=== PATIENT | female | born 1930 | race Caucasian/White ===

== ENCOUNTER → 2017-01-28 | Day surgery (SDC) | payer MEDICARE ==
[~2017-01-28] MED LIST: ADULT LOW DOSE81 MG PO; AMBIEN 5MG TAB5 MG PO; AMILORIDE HCL5 M1 PO; ASPIRIN 81MG TA81 MG PO; AZOR 5 MG-40 MG1 TAB PO; B12 INJ.,1000 MCG/M IM; BISOPROLOL5 MG PO; CARVEDILOL6.25 MG PO; CIPROFLOXACIN500 MG PO; DILTIAZEM CD 2240 MG PO; FOLIC ACID 1MG T1 MG PO; FUROSEMIDE 20MG20 MG FT; HYZAAR 50-12.51 EACH PO; INDERAL10 MG PO; ISONIAZID300 MG PO; LEVAQUIN250 MG PO; LISINOPRIL2.5 M1 PO; LOSARTAN POTASS1 TAB PO; LOSARTAN POTASS50 MG PO; MACROBID 100MG100 M1 PO; MAXZIDE 25 MG-31 TAB PO; METHOTREXA50 MG/2 ML IJ; MULTIVITAMIN1 TAB PO; NEURONTIN 100100 MG PO; NORCO 325 MG-51 TAB PO; NORVASC 10MG. T10 MG PO; NORVASC 5MG. TAB5 MG; OMEPRAZOLE20 MG PO; OTREXUP7.5 MG/0.4 SC; PREDNISONE 10MG10 MG PO; PREDNISONE 5MG.5 MG PO; PRESERVISION A1 EACH PO; PRINIVIL10 MG PO; REQUIP0.25 MG PO; REQUIP0.5 MG PO; RESTORIL7.5 MG PO; TRIAMTERENE-HCTZ 37. PO; TYLENOL WITH CO1 TA1 PO; VITAMIN D31000 IU PO; [UNRECOGNIZED DRUG - OTHER] PO
[2017-01-28 09:25] VITALS: BP 127/71
--- NOTE | 2017-01-28 09:40 | Operative Note ---
Procedure: Date of procedure: 01/28/17 Time of procedure: 933 Procedure performed: Implantable loop recorder Indication: Paroxysmal Atrial Fibrillation Elevated CHADS-VASc score Recurrent falls and high risk for anticoagulation use Technique: Technique: 1 percent lidocaine with epinephrine used to anesthetize the size. The LEFT anterior aspect of the chest along the LEFT sternal border. Using the preformed scalpel, an incision was made in the loop recorder was placed subcutaneously without difficulty. Following the deployment of the loop recorder interrogation of the device was performed to ensure appropriate voltage was being detected. Once this was verified. Steri-Strips were placed over the incision and the patient was prepped to discharge home. Patient tolerated procedure well with minimal discomfort. Impression: Successful deployment of loop recorder Serial number: [id number] Plan: Routine post op care. Follow up in office next week. at 0942
--- NOTE | 2017-01-28 09:40 | Operative Note ---
Procedure: Date of procedure: 01/28/17 Time of procedure: 933 Procedure performed: Implantable loop recorder Indication: Paroxysmal Atrial Fibrillation Elevated CHADS-VASc score Recurrent falls and high risk for anticoagulation use Technique: Technique: 1 percent lidocaine with epinephrine used to anesthetize the size. The LEFT anterior aspect of the chest along the LEFT sternal border. Using the preformed scalpel, an incision was made in the loop recorder was placed subcutaneously without difficulty. Following the deployment of the loop recorder interrogation of the device was performed to ensure appropriate voltage was being detected. Once this was verified. Steri-Strips were placed over the incision and the patient was prepped to discharge home. Patient tolerated procedure well with minimal discomfort. Impression: Successful deployment of loop recorder Serial number: [id number] Plan: Routine post op care. Follow up in office next week. at 0942
== END ==
LOC: CATHLAB 07:52
PROVIDERS: Internal Medicine
PROC: 0JH632Z Insertion of Monitoring Device into Chest Subcutaneous Tissue and Fascia, Percutaneous Approach (ICD-10-PCS; principal; 2017-01-28 08:30)
DX: I48.0 Paroxysmal atrial fibrillation (principal); R29.6 Repeated falls; Z91.81 History of falling
CPT/HCPCS: C1764

== ENCOUNTER 2017-07-14 15:21 | Emergency (ER) | payer MEDICARE ==
[~2017-07-14] VITALS: Ht 162.6 cm; Wt 72.6 kg
[~2017-07-14 15:21] MED LIST changes: +CIPRO 500MG TA500 MG; +REQUIP2 M1
[2017-07-14 15:31] LABS: HEMOGLOBIN 12.4 g/dL (12.2-16.2); LYMPH # 1.6 K/mm3 (0.7-4.5); LYMPH % 42.3 % (10-50.0)
[2017-07-14] MEDS ORDERED: LOSARTAN POTASS50 MG PO (15:31)
[2017-07-14] MEDS ORDERED: BYSTOLIC5 MG PO (15:32)
[2017-07-14] MEDS ORDERED: ROPINIROLE HYDRO1 MG PO (15:34)
[2017-07-14] MEDS ORDERED: PLAQUENIL200 MG PO (15:35)
[2017-07-14] MEDS ORDERED: ALENDRONATE SOD70 MG PO (15:36)
[2017-07-14] MEDS ORDERED: LIPITOR40 MG PO (15:37)
[2017-07-14] MEDS ORDERED: TYLENOL WITH CO1 TA1 PO (15:37)
[2017-07-14] MEDS ORDERED: ASPIRIN 81MG TA81 MG PO (15:38)
[2017-07-14] MEDS ORDERED: FUROSEMIDE 20MG20 MG PO (15:38)
[2017-07-14] MEDS ORDERED: VITAMIN D1000 IU PO (15:39)
--- NOTE | 2017-07-14 15:44 | RADIOLOGY REPORT PS360 ---
CT HEAD W/O CONTRAST COMPARISON: None HISTORY: Headache, hypertension, stroke symptoms sided weakness, facial droop TECHNIQUE: Multiaxial scans obtained from base skull to the vertex and were performed without IV contrast. FINDINGS: The base of skull appears normal, the mastoids are clear. The basilar cisterns are mildly prominent. There is diffuse ventriculomegaly. There is a large acute hemorrhage right frontal lobe measuring 3.1 x 3.0 cm in size abutting the interhemispheric fissure and causing mild mass effect upon the frontal horn of the right lateral ventricle. There is minimal effacement of the cortical sulci surrounding the bleed into the vertex of the brain. There is no subarachnoid extension. The sylvian fissures and cortical sulci are somewhat prominent. IMPRESSION: Acute intraparenchymal hemorrhage likely secondary to hypertension, cerebral amyloid angiopathy is another consideration. Additional findings and mild to moderate age-appropriate cortical atrophy.
--- NOTE | 2017-07-14 15:49 | Emergency Room Report ---
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 Clinical Suspician of Infection? Mental Status: Sepsis Risk: Have you (or family members/close friends) recently traveled outside the [place]? If Yes, where/when: Have you had exposure to infectious disease within the past month? TB? Other? Specify: 87 years old white female with history of hypertension and hypoglycemia. She was seen by her primary care physician yesterday and started on bystolic. She is back to this she developed LEFT sided weakness was unable to speak and brought to the ED. I obtained a stat CT scan which showed RIGHT intraventricular hemorrhage. I contacted stroke who accepted her to the ED. Source patient, RN notes reviewed, family Exam Limitations clinical condition ALLERGIES Coded Allergies: Penicillins (12/06/15) Home Medications Reported Medications Losartan Potassium (Losartan 50MG) 50 MG PO DAILY NEBIVOLOL HCL (Bystolic) 10 MG PO DAILY ROPINIROLE HCL (Ropinirole 1MG) 1 MG PO BID Hydroxychloroquine Sulfate (Plaquenil) 200 MG PO DAILY Alendronate Sodium 70 MG PO WEEKLY Atorvastatin Calcium (Atorvastatin) 40 MG PO DAILY ACETAMINOPHEN WITH CODEINE (Tylenol With Codeine #3 Tablet) 1 TAB PO BIDP PRN PAIN Furosemide (Furosemide) 20 MG PO DAILYP PRN FLUID ASPIRIN (Aspirin) 81 MG PO DAILY CHOLECALCIFEROL (VITAMIN D3) (Vitamin D3) 1,000 IUNITS PO DAILY History Medical History General CAD? No Angina: No [place]: Yes Hypertension? Yes Hyperlipidemia? Yes CHF? No DVT? Yes PE? No COPD? No Asthma? No Anemia? No GERD? No Gastric ulcers? No GI Bleed? No Hernia? No Thyroid Problems? No Hypothyroidism? No CVA? No Seizures? No Diabetes? No Renal Insuffiency? No End Stage Renal Disease? No UTI? Yes Stones? Yes BPH? No GB Disease: No Nephritic Syndrome? No Asplenia? No Hepatitis? No Sickle Cell Disease? No Arthritis? Yes Migraines? No Cataracts? No Glaucoma? No MRSA? No HIV? No TB? No Anxiety? No Depression? No Cancer? No More? Yes Additional hx: RHEUMATIOD ARTHRITIS Immunization Hx DT/Tetanus Unknown Flu Refused Pneumonia Received In Past Surgical Hx Previous Surgery?Y Appendix Breast bx Tonsils Hysterect BACK SURGERY LT KNEE RT KNEE Family History Family Hx Diabetes No CAD Yes Hypertension Yes Hyperlipidemia Yes Cancer Yes TB No Social History Alcohol Alcohol: No Review of Systems All Other Systems Reviewed and Negative Constitutional no symptoms reported Eyes no symptoms reported ENT no symptoms reported. Respiratory no symptoms reported Cardiovascular no symptoms reported Gastrointestinal no symptoms reported Genitourinary no symptoms reported. Musculoskeletal see HPI (weakness) Skin no symptoms reported Psychiatric/Neurological weakness (LEFT sided) Physical Exam Vital Signs Vital Signs Date Time Temp Pulse Resp B/P Pulse O2 O2 Flow FiO2 Ox Delivery Rate 07/14 1625 98.4 66 18 192/84 96 07/14 1613 66 18 192/84 96 07/14 1611 65 20 209/97 94 07/14 1608 60 20 207/101 94 07/14 1605 61 18 204/94 94 07/14 1600 62 18 188/99 92 07/14 1550 65 20 218/104 94 07/14 1547 72 16 199/140 93 10 1528 98.4 65 16 206/101 97 - WBC >12,000 or <4,000 or 10% bands? 2 or more SIRS Criteria Met? B/P:206/101 MAP:136 Creatinine >2.0? UA output<0.5ml/kg/hr for 2 hrs? Platelet count >100,000? Lactate >2.0mmol/1? INR >1.2 or PTT > than 60 sec? Evidence of Organ Dysfunction? Provider documented clinical suspician of infection? N Sepsis Criteria Count: 0 Sepsis Risk: Low Sepsis Risk General Appearance normal appearance, WD/WN Eye Exam - bilateral eye normal exam, bilateral eye PERRL, bilateral eye EOMI Ear, Nose, Throat hearing grossly normal, normal ENT inspection Neck normal inspection, non-tender, supple, full range of motion Respiratory Status Yes: trachea midline, chest symmetrical, non tender chest. No: respiratory distress. Lung Sounds bilateral: normal breath sounds, lungs clear. Cardiovascular normal exam, regular rate/rhythm, no peripheral edema, no gallop, no JVD, no murmur, no rub, normal peripheral pulses Peripheral Pulses Pulses normal Yes Gastrointestinal normal bowel sounds, normal exam, non tender, soft, no organomegaly Back normal inspection, no CVA tenderness, no vertebral tenderness Extremities non-tender, normal range of motion, normal inspection Neurologic alert, normal exam, incomplete closure of the LEFT eye, flattening of the LEFT nasolabial fold There was weakness of the LEFT upper and lower extremities. LEFT shashi-neglect. Glascow Coma Scale Glascow Coma Scale Response Value EYE response: 4 Spontaneously 4 MOTOR response: 6 OBEYS 6 VERBAL response: 5 Oriented & Converses 5 Total 15 Skin intact, normal color, warm/dry Medical Decision Making LABS/Meds/Orders Pt receiving controlled substance in ED? No Results/Orders Laboratory Tests 07/14/17 1545: Urine Color YELLOW, Urine Appearance CLEAR, Urine pH 6.0, Ur Specific [place] >= 1.030, Urine Protein NEGATIVE, Urine Ketones NEGATIVE, Urine Blood NEGATIVE, Urine Nitrate NEGATIVE, Urine Bilirubin NEGATIVE, Urine Urobilinogen 0.2, Ur Leukocyte Esterase NEGATIVE, Urine RBC NONE, Urine WBC 5-10, Ur Squamous Epith Cells OCC, Calcium Oxalate Crystal OCC, Urine Bacteria 3+, Hyaline Casts 3-5, Urine Mucus 3+, Urine Glucose NEGATIVE 07/14/17 1520: Sodium 143, Potassium 3.9, Chloride 106, Carbon Dioxide 29, BUN 20 H, Creatinine 1.0, Estimated Creat Clear 47 L, Estimated GFR (MDRD) 53 L, Glucose 93, Calcium 8.7, Total Bilirubin 0.6, AST 16, ALT 21, Alkaline Phosphatase 139 H, Creatine Kinase 258 H, CK-MB (CK-2) Rel Index 0.7, CK and CKMB Interp 1.9, Troponin I < 0.02, Total Protein 6.3 L, Albumin 3.7, Globulin 2.6, Albumin/ Globulin Ratio 1.4, PT 11.8, INR 1.09, APTT 24.3, WBC 3.7 L, RBC 3.97 L, Hgb 12.4, Hct 39.3, MCV 99.2 H, RDW 13.6, Plt Count 210, MPV 7.9, Gran % 46.3, Gran # 1.7 L, Lymphocytes % 42.3, Monocytes % 8.1, Eosinophils % 2.3, Basophils % 0.9, Lymphocytes # 1.6, Monocytes # 0.3, Eosinophils # 0.1, Basophils # 0.0, PUBS MCHC 31.6 L, MCH 31.3 H Current Medication Orders Sig/Akila Start time Last Medication Dose Route Stop Time Status Admin Nicardipine HCl 25 MG .Q5H 07/14 1600 DCD 07/14 Sodium Chloride 240 ML IV 1600 Labetalol HCl 10 MG ONCE ONE 07/14 1545 DC 07/14 IV 07/14 1546 1536 Ondansetron HCl 4 MG ONCE ONE 07/14 1545 DC 07/14 IV 07/14 1546 1540 Labetalol HCl 0 .STK-MED ONE 07/14 1536 DC IV Ondansetron HCl 0 .STK-MED ONE 07/14 1536 DC .ROUTE Orders Procedure Date/time Status DIET-NOTHING BY MOUTH 07/14 D Active URINARY CATHETER INSERT 07/14 155 Active URINALYSIS/COMPLETE 07/14 155 Complete CULTURE, URINE 07/14 154 Active ELECTROCARDIOGRAM REQUEST 07/[address] HEAD REQ 07/14 152 Active PARTIAL THROMBOPLASTIN TIME 07/14 152 Complete PROTHROMBIN TIME 07/14 152 Complete CBC WITH AUTO DIFF 07/14 152 Complete CARDIAC ENZYMES 07/14 152 Complete CHEM 12 PROFILE 07/14 152 Complete 12 LEAD EKG-BESSON (INITIAL) 07/14 UNK Active CM/EKG CM/EKG EKG normal sinus rhythm 65 minutes no acute findings XRAY/CT/US XRAY/CT/US CT head CT interpretation by reviewed by me, discussed w/radiologist Time results known: 1550 CT Results IChge Departure Departure Time of Disposition 1546 Disposition DC/XFER from ER to [facility] Clinical Impression Primary Impression: Hemorrhagic cerebrovascular accident (CVA) Secondary Impressions: Hypertension Condition STABLE Additional Instructions I discussed all exam and Ct findings with the patient and her brother, I explained the need to go to tertiary facility for neurosurery consultation and they agreed. I called Dr Eid who recommened a nicardipine drip and transfer to ED for nuerosurgical and Neurology teams evalution. The patietn remained neurologically stable. Intially given labetalol and stated Nicardipine per [facility] recommeddations priot to transfere. SHe was transered in a neurologically and hemodynamically stable condition. Dr. Kilpatrick Discharge Counseling Counseled pt/family regarding diagnosis, follow up needs ED Critical Care Critical Care Yes Time spent < 30 min Vital system(s) involved: Central Nervous System I was present at bedside for Coordinating pt's care, Interpreting EKGs/Strips , During my initial exam, Reviewing lab results, Discussing pt condition, For re -examinations If Critical Care minutes are documented, the time involved in the performance of seperately reportable procedures was not counted toward critical care time documented. I directly delivered medical care to this critically ill and/or injured patient. Timely evaluation and treatment was necessary to address the significant organ system(s) dysfunction present in this patient. at 1706
[2017-07-14 15:54] LABS: BUN 20 mg/dL (7-18)
[2017-07-14 15:55] LABS: GFR (ESTIMATED) 53 ML/MIN (59-)
[2017-07-14 15:58] LABS: URINE BILIRUBIN - DIPSTICK NEGATIVE (NEG); URINE BLOOD NEGATIVE (NEG)
[2017-07-14 16:13] LABS: URINE SQUAMOUS CELLS OCC #/hpf (0-5)
[2017-07-14 16:25] VITALS: BP 192/84
--- OUTSIDE RECORDS SUMMARY | 2017-07-21 20:10 | External Medical Summary Rpt ---
Author Author [facility] Organization [facility] Address Unknown Phone Unavailable Care Team Providers Care Delicatessen Manager Name Role Phone PHY, UNKNOWN PCP Unavailable Encounter [facility] [id number] Date(s): 06/24/16 - 07/01/16 [facility] [place] [id number]- Discharge Disposition: OP Self Care or Home Attending Physician: JOHN BEASLEY MD-URO Admitting Physician: JOHN BEASLEY MD-URO Referring Physician: JOHN BEASLEY MD-URO Reason for Visit CALCULUS OF KIDNEY Vital Signs Most recent 1 2 3 to oldest [Reference Range]: Temperature Temporal artery Temporal artery Temporal artery Source scanning (07/01/16 scanning (07/01/16 scanning (07/01/16 11:00 AM) 10:20 AM) 9:55 AM) Temperature Fahrenheit Fahrenheit Fahrenheit Mode (07/01/16 11:00 (07/01/16 10:20 (07/01/16 9:55 AM) AM) AM) Temperature, 97 Deg F (07/01/16 97.7 Deg F 97.6 Deg F Fahrenheit 11:00 AM) (07/01/16 10:20 (07/01/16 9:55 AM) [96.8-99.7 AM) Deg F] Clinical 36.1 Deg C 36.5 Deg C 36.4 Deg C Temperature, (07/01/16 11:00 (07/01/16 10:20 (07/01/16 9:55 AM) C AM) AM) Heart Rate 64 bpm (07/01/16 60 bpm (07/01/16 65 bpm (07/01/16 Monitored 11:30 AM) 11:15 AM) 11:00 AM) [60-100 bpm] Respiratory 16 Breaths/Min 16 Breaths/Min 16 Breaths/Min Rate [14-20 (07/01/16 11:00 (07/01/16 10:30 (07/01/16 10:20 Breaths/Min] AM) AM) AM) Blood Arm, left upper Pressure (07/01/16 6:00 AM) Location Blood Non-Invasive BP Pressure Device (07/01/16 Source 6:00 AM) Blood 153/77 mmHg 159/78 mmHg 156/85 mmHg Pressure *HI*(07/01/16 *HI*(07/01/16 *HI*(07/01/16 [90-140/60-9 11:30 AM) 11:15 AM) 11:00 AM) 0 mmHg] Mean 115 (07/01/16 95 (07/01/16 10:15 103 (07/01/16 Arterial 10:20 AM) AM) 10:10 AM) Pressure (MAP)-BMDI Oxygen 95 % (07/01/16 95 % (07/01/16 97 % (07/01/16 Saturation 11:30 AM) 11:15 AM) 11:00 AM) [94-100 %] Oxygen Room air (07/01/16 Room air (07/01/16 Room air (07/01/16 Therapy Mode 11:30 AM) 11:15 AM) 11:00 AM) Oxygen Flow 5 Liter/Min Rate (07/01/16 9:55 AM) Problem List Condition Effective Status Health Informant Dates Status Arthritis Active (knees)(Conf irmed) Back Active pain(Confirm ed) dizzy spell Active prior to "episode" in 06/2015 with UTI(Confirme d) GERD - Active Gastro-esoph ageal reflux disease (occasional) (Confirmed) heart Active murmer(Confi rmed) High blood Active pressure(Con firmed) Immunosuppre Active ssion (RA)(Confirm ed) Incontinence Active (occasional) (Confirmed) Myocardial Active infarction (? possible mild)(Confir med) recent fall 06/09/16 Active (hurt hip and into thigh-left)( Confirmed) Renal Active calculus(Con firmed) Restless Active legs syndrome (occasional) (Confirmed) rheumatoid Active arthritis(Co nfirmed) small Active cataracts(Co nfirmed) Urinary Active tract infection(Co nfirmed) UTI-septic 06/2015 Active ("went to heart")(Conf irmed) Allergies, Adverse Reactions, Alerts Substance Reaction Severity Status penicillin Rash Active Shortness of breath Medications acetaminophen-HYDROcodone ([place] 5 mg-325 mg oral tablet)1 Tab, Oral, Every 4 Hours, As Needed, for pain, Refills: 0Ordering provider: Emre Wade Physician carvedilol (Coreg CR 20 mg oral capsule, extended release)1 Cap, Oral, Every Morning, Refills: 0 cholecalciferol (Vitamin D3 1000 intl units oral capsule)1 Cap, Oral, Every Day, Refills: 0 ciprofloxacin (Cipro 500 mg oral tablet) 1 Tab, Oral, every 12 hours, Refills: 0 Ordering provider: Emre Wade Physician estradiol topical (Estrace Vaginal 0.1 mg/g vaginal cream)1 Application, Vaginal, 3 times/week, Refills: 0 gabapentin (gabapentin 100 mg oral capsule)1 Cap, Oral, At Bedtime, As Needed, Pain, Refills: 0 losartan (losartan 50 mg oral tablet) 1 Tab, Oral, Every Day, Refills: 0 multivitamin with minerals (PreserVision AREDS 2)1 Cap, Oral, Two Times A Day, Refills: 0 phenazopyridine (phenazopyridine 100 mg oral tablet)1 Tab, Oral, Three Times A Day, 7 Day(s), Refills: 0Ordering provider: Emre Wade Physician rOPINIRole (rOPINIRole 0.5 mg oral tablet)1 Tab, Oral, At Bedtime, As Needed, restless leg, Refills: 0 Results No data available for this section Immunizations No data available for this section Procedures Procedure Date Related Body Site Diagnosis lithotripsy 1986 appendectomy cyst removed left breast hysterectomy left TKR lumbar discectomy tonsillectomy Social History Social History Response Type Smoking Status Never smoker Assessment and Plan No data available for this section Hospital Discharge Instructions Patient EducationCystoscopy, Care After General Anesthesia, Adult, Care After
--- OUTSIDE RECORDS SUMMARY | 2017-07-21 20:10 | External Medical Summary Rpt ---
Author Author [facility] Organization [facility] Address Unknown Phone Unavailable Care Team Providers Care Furniture Dipper Name Role Phone PHY, UNKNOWN PCP Unavailable Encounter [facility] [id number] Date(s): 06/24/16 - 07/01/16 [facility] [place] [address]- [phone] Discharge Disposition: OP Self Care or Home [...] Rash Active Shortness of breath Medications acetaminophen-HYDROcodone ([place] 5 mg-325 mg oral tablet)1 Tab, Oral, Every 4 Hours, As Needed, for pain, Refills: 0Ordering provider: Emre Waed Physician carvedilol (Coreg CR 20 mg oral [...]
--- OUTSIDE RECORDS SUMMARY | 2017-07-21 20:11 | External Medical Summary Rpt ---
Author Author BERHANE [facility] Organization [facility] Address Unknown Phone Unavailable Care Team Providers Care Bead Forming Machine Set Up Operator Name Role Phone AURELIAANITHA, (REF) PCP [phone] Encounter BERHANE AMAYA [id number] Date(s): 02/16/17 - 02/22/17 [facility] [address] [place] [address]- Discharge Diagnosis: Primary osteoarthritis of right knee Discharge Disposition: IP Self Care / Home Attending Physician: YI MG MD-ORT Admitting Physician: JEANNETTE PETER MD-INT Referring Physician: YI MG MD-ORT Reason for Visit UNILATERAL PRIMARY OSTEOARTHRITIS, RIGHT KNEE Vital Signs Most recent 1 2 3 to oldest [Reference Range]: Temperature Oral Oral (02/21/17 Temporal artery Source (02/22/17 1:23 PM) 11:18 AM) scanning (02/21/17 10:20 AM) Temperature Fahrenheit Fahrenheit Fahrenheit Mode (02/22/17 1:23 PM) (02/21/17 11:18 (02/21/17 10:20 AM) AM) Temperature, 97.2 Deg F 97.2 Deg F 96.5 Deg F Fahrenheit (02/22/17 1:23 PM) (02/22/17 9:00 AM) *LOW* [96.8-99.7 (02/22/17 2:57 AM) Deg F] Clinical 36.2 Deg C 35.8 Deg C 36.3 Deg C Temperature, (02/22/17 1:23 PM) (02/22/17 2:57 AM) (02/21/17 11:18 C AM) Pulse Method Pulse Oximetry Non-Invasive BP Non-Invasive BP (02/21/17 10:20 Device (02/21/17 Device (02/18/17 AM) 7:50 AM) 2:59 PM) Pulse Source Brachial, Left (02/21/17 7:50 AM) Pulse Rhythm Regular (02/21/17 Regular 10:20 AM) (02/18/17 2:59 PM) Peripheral 66 bpm 64 bpm Pulse Rate (02/21/17 7:50 AM) (02/18/17 2:59 PM) [60-100 bpm] Heart Rate 67 bpm 66 bpm 66 bpm Monitored (02/22/17 1:23 PM) (02/22/17 8:48 AM) (02/22/17 8:00 AM) [60-100 bpm] Respiratory 14 Breaths/Min 16 Breaths/Min 18 Breaths/Min Rate [14-20 (02/22/17 1:23 PM) (02/22/17 8:00 AM) (02/21/17 11:00 Breaths/Min] PM) Blood Arm, right upper Arm, left upper Arm, left upper Pressure (02/21/17 10:20 (02/21/17 7:50 AM) (02/21/17 7:25 AM) Location AM) Blood Non-Invasive BP Non-Invasive BP Non-Invasive BP Pressure Device (02/21/17 Device (02/21/17 Device (02/21/17 Source 10:20 AM) 7:50 AM) 7:25 AM) Blood Sitting (02/21/17 Sitting Sitting Pressure 10:20 AM) (02/21/17 7:50 AM) (02/21/17 7:25 AM) Position Blood 107/46 mmHg 135/62 mmHg 135/62 mmHg Pressure (02/22/17 1:23 PM) (02/22/17 8:48 AM) (02/22/17 8:00 AM) [90-140/60-9 0 mmHg] Mean 79 75 72 (02/21/17 11:00 Arterial (02/22/17 8:00 AM) (02/22/17 2:57 AM) PM) Pressure (MAP)-BMDI Oxygen 93 % 94 % 89 % Saturation *LOW* (02/22/17 8:00 AM) *LOW* [94-100 %] (02/22/17 1:23 PM) (02/22/17 2:57 AM) Oxygen Room air Room air Room air (02/21/17 Therapy Mode (02/22/17 1:23 PM) (02/22/17 9:00 AM) 11:00 PM) Oxygen Flow 2 Liter/Min 2 Liter/Min 2 Liter/Min Rate (02/21/17 8:46 PM) (02/21/17 11:18 (02/21/17 11:00 AM) AM) Height Stated Stated Stated Source (02/21/17 7:50 AM) (02/21/17 7:25 AM) (02/18/17 2:59 PM) Height Entry [place] Format (02/21/17 7:50 AM) (02/21/17 7:25 AM) (02/18/17 2:59 PM) Height/Lengt 64 Inch 64 Inch 64 Inch h MALAWIAN (02/21/17 7:50 AM) (02/21/17 7:25 AM) (02/18/17 2:59 PM) CLINICALHEIG 162.56 cm 162.56 cm 162.56 cm HT (02/21/17 7:50 AM) (02/21/17 7:25 AM) (02/18/17 2:59 PM) Weight Standing scale Standing scale Standing scale Source (02/21/17 7:50 AM) (02/21/17 7:25 AM) (02/18/17 2:59 PM) Weight Entry [place] Format (02/21/17 7:50 AM) (02/21/17 7:25 AM) (02/18/17 2:59 PM) Weight 152 lb 152 lb 150 lb Eston[place] lb (02/21/17 7:50 AM) (02/21/17 7:25 AM) (02/18/17 2:59 PM) CLINICALWEIG 69.09 kg 69.09 kg 68.18 kg HT (02/21/17 7:50 AM) (02/21/17 7:25 AM) (02/18/17 2:59 PM) Body Surface 1.74 m2 1.74 m2 1.73 m2 Area (BSA) (02/21/17 7:50 AM) (02/21/17 7:25 AM) (02/18/17 2:59 PM) Body Mass 26.1 kg/m2 26.1 kg/m2 25.8 kg/m2 Index *HI* *HI* *HI* [19.0-24.0 (02/21/17 7:50 AM) (02/21/17 7:25 AM) (02/18/17 2:59 PM) kg/m2] [place] Body 54 kg 54 kg 54 kg Weight (02/21/17 7:50 AM) (02/21/17 7:25 AM) (02/18/17 2:59 PM) Problem List Condition Effective Status Health Informant Dates Status Arthritis Active (knees)(Conf irmed) Back Active pain(Confirm ed) dizzy spell Active prior to "episode" in 06/2015 with UTI(Confirme d) Hx; recent Active fall (lower back pain)(Confir med) GERD - Active Gastro-esoph ageal reflux disease (occasional) (Confirmed) heart Active murmer(Confi rmed) High blood Active pressure(Con firmed) Immunosuppre Active ssion (RA)(Confirm ed) Incontinence Active (occasional) (Confirmed) Cataract of Active right eye(Confirme d) Myocardial Active infarction (? possible mild)(Confir med) Renal Active calculus(Con firmed) Restless Active legs syndrome (occasional) (Confirmed) rheumatoid Active arthritis(Co nfirmed) Urinary Active tract infection(Co nfirmed) UTI-septic 06/2015 Active ("went to heart")(Conf irmed) Allergies, Adverse Reactions, Alerts Substance Reaction Severity Status penicillin Rash Active Shortness of breath Medications amLODIPine (amLODIPine 5 mg oral tablet) 1 Tab, Oral, Every Day, Refills: 0 aspirin (aspirin 81 mg oral tablet) 1 Tab, Oral, Every Day, Refills: 0 atorvastatin (atorvastatin 40 mg oral tablet) 1 Tab, Oral, Every Day, Refills: 0 carvedilol (Coreg 25 mg oral tablet) 1 Tab, Oral, Two Times A Day, Refills: 0 cholecalciferol (Vitamin D3 1000 intl units oral capsule)1 Cap, Oral, Every Day, Refills: 0 ferrous gluconate (ferrous gluconate 325 mg (36 mg elemental iron) oral tablet)1 Tab, Oral, Every Day, Refills: 0 furosemide (Lasix 20 mg oral tablet) 1 Tab, Oral, Every Day, Refills: 0 gabapentin (gabapentin 300 mg oral capsule) 1 Cap, Oral, At Bedtime, Refills: 0 losartan (losartan 50 mg oral tablet) 1 Tab, Oral, Every Day, Refills: 0 multivitamin with minerals (PreserVision AREDS 2)1 Cap, Oral, Two Times A Day, Refills: 0 Non Formulary (Non Formulary Medication) 1 Cap, Oral, Every Day, Tumeric, Refills: 0 rOPINIRole (Requip 0.25 mg oral tablet)1 Tab, Oral, Two Times A Day, As Needed, restless, Refills: 0 Results GENERAL CHEMISTRY Most recent 1 2 to oldest [Reference Range]: Sodium Level 140 mmol/L 142 mmol/L [136-145 (02/22/17 4:08 AM) (02/21/17 1:39 PM) mmol/L] Potassium 3.9 mmol/L 4.2 mmol/L Level (02/22/17 4:08 AM) (02/21/17 1:39 PM) [3.5-5.1 mmol/L] Chloride 106 mmol/L 106 mmol/L Level (02/22/17 4:08 AM) (02/21/17 1:39 PM) [98-107 mmol/L] Carbon 26 mmol/L 27 mmol/L Dioxide (02/22/17 4:08 AM) (02/21/17 1:39 PM) Level [21-32 mmol/L] Anion Gap 12 13 [9-20] (02/22/17 4:08 AM) (02/21/17 1:39 PM) Glucose 146 mg/dL 122 mg/dL Level *HI* *HI* [74-106 (02/22/17 4:08 AM) (02/21/17 1:39 PM) mg/dL] Blood Urea 24 mg/dL 21 mg/dL Nitrogen *HI* *HI* [7-18 mg/dL] (02/22/17 4:08 AM) (02/21/17 1:39 PM) Creatinine 0.98 mg/dL 0.84 mg/dL Level (02/22/17 4:08 AM) (02/21/17 1:39 PM) [0.55-1.02 mg/dL] eGFR 66 mL/min/1.73m2 78 mL/min/1.73m2 [>=60 (02/22/17 4:08 AM) (02/21/17 1:39 PM) mL/min/1.73m 2] eGFR 54 mL/min/1.73m2 65 mL/min/1.73m2 NonAfrican *LOW* (02/21/17 1:39 PM) [>=60 (02/22/17 4:08 AM) mL/min/1.73m 2] Bun/Creatini 24.5 25.0 ne *HI* *HI* [8.0-20.0] (02/22/17 4:08 AM) (02/21/17 1:39 PM) Calcium 8.4 mg/dL 8.8 mg/dL Level *LOW* (02/21/17 1:39 PM) [8.5-10.1 (02/22/17 4:08 AM) mg/dL] CARDIAC SPECIFIC MARKERS Most recent 1 2 to oldest [Reference Range]: ProBNP 377 pg/mL [0-450 (02/22/17 4:08 AM) pg/mL] HEMATOLOGY Most recent 1 2 to oldest [Reference Range]: Hgb 10.5 Gram/dL 11.2 Gram/dL [11.2-15.7 *LOW* (02/21/17 10:29 AM) Gram/dL] (02/22/17 4:08 AM) Hct 30.9 % 33.3 % [34.1-44.9 *LOW* *LOW* %] (02/22/17 4:08 AM) (02/21/17 10:29 AM) BLOOD BANK Most recent 1 2 to oldest [Reference Range]: ABO/Rh B POS *Unknown* (02/21/17 8:07 AM) ABO/Rh B POS Repeat *Unknown* (02/21/17 8:11 AM) Antibody Negative ABSC Screen (02/21/17 8:07 AM) (Tube) Immunizations No data available for this section Procedures Procedure Date Related Body Site Diagnosis cataract ext / IOL left eye colonosccopy heart cath - no interventions right TKA x 2 Social History Social History Response Type Smoking Status Never smoker Assessment and Plan Extracted from: Title: Ortho Author: MARIA A BOLTON, Date: 02/22/17 PA-C Assessment/Plan POD #1 s/p Right TKA--Patient's pain is well controlled. Pull drain today. Patient is participating in post operative therapy diligently. Knee flexion/extension progressing well. [address] patients affected heel, padded, onto bucket, 1 foot above hip to encourage knee extension for 30 minutes. Prone hangs BID with 5# weight. Keep dressing clean, dry and intact. Plan for d/cREHAB today, please see ortho addendum for instructions. Extracted from: Title: Ortho Addendum Author: MARIA A BOLTON, Date: 02/21/17 PA-Pepito Discharge Plan Ortho Discharge Summary Addendum Discharge: Rehab/Factiliy Procedure: Right TKA Complications: None DVT Prophylaxis: Aspirin 81 mg tabs, 1 BID for 45 days. Script written, on chart WBStatus:WBAT Therapy goals: Hospital ROM Continue Earnest at home all times when not performing PT/HEP TID Prone Hangs, patient shown how to perform CPM machine 0-110 Goal- Knee flexion 110 degrees GARETH F/U in clinic 2-3 weeks Discharge Instructions: 1)Elevate the knee and the entire lower extremity for as much as possible for 6 weeks and use ice liberally for 30 minutes 3-4 times a day. 2)Patient may shower on the 3rd day after surgery, but must keep the wound or dressing completely dry until wilton are removed. The patient should not take any soaking baths until 1 month after surgery. 3) Patient may bear as much weight as tolerated on the affected extremity. TUBS (passive exertion) exercises for 30 minutes TID are effective initially after surgery, but after the 1st week, the patient should progress to prone hangs to help with knee straightening postoperatively. 4) Patient will be on blood thinner for 4 to 6 weeks after surgery. Blood thinner is ECASA 81mg tabs po BID x 45 days. 5) You may remove the ALYCIA day after surgery and leave the incision uncovered if it is completely dry. PLEASE DO NOT REMOVE MESH PRINIO DRESSING. 6) An ALYCIA wrap can be used to cover the wound to maintain compression and decrease swelling. 7) Call for wound drainage that is present beyond 7 days after surgery. 9) Motion is more important than strength or walking distance during the first 6 weeks after surgery. 10) Gabapentin 300 mg tabs, Oxycodone 10mg tabs, Tramadol 50mg q6hand Tylenol 1000mg TID will be used for postoperative pain control and should be weaned as the patient can tolerate . 7) Call for wound drainage that is present beyond 7 days after surgery. 9) Motion is more important than strength or walking distance during the first 6 weeks after surgery. 10) Gabapentin 300 mg tabs, Oxycodone 10mg tabs, Tramadol 50mg q6hand Tylenol 1000mg TID will be used for postoperative pain control and should be weaned as the patient can tolerate . Adde Patient reports hallucinations with Tramadol, this medication ndum was removed from d/c medications list. by MARIA A BARNES PA-C on 22 Feb 2017 07:3 7:42 EDT Hospital Discharge Instructions Patient EducationCompression Stockings Hand Washing Knee Immobilizer Dominik Mg TKA Discharge Instructions (Custom) Total Knee Replacement Total Knee Replacement, Care After Walker Use
--- OUTSIDE RECORDS SUMMARY | 2017-07-21 20:11 | External Medical Summary Rpt ---
Author Author BERHANE [facility] Organization [facility] Address Unknown Phone Unavailable Care Team Providers Care Hand Flesher Name Role Phone AURELIAANITHA, (REF) PCP [phone] Encounter BERHANE AMAYA [id number] Date(s): 02/16/17 - 02/22/17 [facility] [address] [place] [address]- [phone] Discharge Diagnosis: Primary osteoarthritis of right knee [...] 7:25 AM) (02/18/17 2:59 PM) Height Entry [place] Format (02/21/17 7:50 AM) (02/21/17 7:25 AM) (02/18/17 2:59 PM) Height/Lengt 64 Inch 64 Inch 64 Inch h [place] (02/21/17 7:50 AM) (02/21/17 7:25 AM) (02/18/17 2:59 PM) CLINICALHEIG 162.56 cm 162.56 cm 162.56 cm HT (02/21/17 7:50 AM) (02/21/17 7:25 AM) (02/18/17 2:59 PM) Weight Standing scale Standing scale Standing scale Source (02/21/17 7:50 AM) (02/21/17 7:25 AM) (02/18/17 2:59 PM) Weight Entry [place] Format (02/21/17 7:50 AM) (02/21/17 7:25 AM) (02/18/17 2:59 PM) Weight 152 lb 152 lb 150 lb Sloven[place] lb (02/21/17 7:50 AM) (02/21/17 7:25 AM) [...] (02/21/17 7:25 AM) (02/18/17 2:59 PM) kg/m2] [place] Body 54 kg 54 kg 54 kg [...] Patient EducationCompression Stockings Hand Washing Knee Immobilizer Domiink Mg TKA Discharge Instructions (Custom) Total Knee Replacement Total Knee Replacement, Care After Walker Use
--- OUTSIDE RECORDS SUMMARY | 2017-07-21 20:12 | External Medical Summary Rpt | CCD ---
Author Author , EBEN TREADWELL Address Unknown Phone [email or web address] Care Team Providers Care Mechanical Planner Name Role Phone Brad Giles MD, Unavailable Unavailable Brad Giles MD Purpose Continuity of Care Document - 12-25-2012 through 2016 Problems Code Diagnosis DOS Provider Status 780.2 Syncope [facility] Allergies, Adverse Reactions, Alerts Type Drug Allergy Adverse Reaction to Substance Substance Reaction Severity Penicillin Unknown Unknown Penicillin V Unknown Unknown Medications Na ND Rx Da Fi Fi Am Da Di Ph RX Ph St me C No te ll ll ou ys ag ar # ys at rm s nt no ma ic us Or Da si cy ia de te s n re d 63 04 1 No PI 73 -1 RI 90 8- Lo N 43 20 ng 81 40 13 er 1 MG Ac ti CH ve EW AB LE TA BL ET TR 00 04 1 No IA 37 -1 MT 81 8- Lo ER 35 20 ng EN 20 13 er E- 1 HC Ac TZ ti ve 37 .5 -2 5 MG TB SO 00 04 2 No DI 40 -1 UM 97 7- Lo 98 20 ng CH 30 13 er LO 9 RI Ac DE ti ve 0. 9% SO MAYELA TI ON 63 03 0 No PI 73 -1 RI 90 9- Lo N 43 20 ng 81 40 13 er 1 MG Ac ti CH ve EW AB LE TA BL ET SO 00 03 1 No DI 40 -1 UM 97 8- Lo 98 20 ng CH 30 13 er LO 9 RI Ac DE ti ve 0. 9% SO MAYELA TI ON Vital Signs 01-26-2013 10:10 Name Value Interpretat Reference Comment ion Range Body 98.3 [degF] Temperature BP 71 mm[Hg] Diastolic BP Systolic 137 mm[Hg] Heart 67 /min Rate/Pulse Respiratory 18 /min Rate 01-26-2013 09:00 Name Value Interpretat Reference Comment ion Range O2% 99 % 01-24-2013 22:00 Name Value Interpretat Reference Comment ion Range Height 162.56 cm Weight 74.475 kg Measured 01-24-2013 19:35 Name Value Interpretat Reference Comment ion Range Body 98.3 [degF] Temperature BP 83 mm[Hg] Diastolic BP Systolic 131 mm[Hg] Heart 70 /min Rate/Pulse O2% 98 % Respiratory 18 /min Rate Weight 00 [oz_av] Measured 12-26-2012 09:45 Name Value Interpretat Reference Comment ion Range Body 98.3 [degF] Temperature BP 77 mm[Hg] Diastolic BP Systolic 137 mm[Hg] Heart 73 /min Rate/Pulse Respiratory 18 /min Rate 12-26-2012 08:00 Name Value Interpretat Reference Comment ion Range O2% 97 % 12-25-2012 23:30 Name Value Interpretat Reference Comment ion Range Height 162.56 cm Weight 74.390 kg Measured 12-25-2012 20:55 Name Value Interpretat Reference Comment ion Range Body 97.4 [degF] Temperature BP 71 mm[Hg] Diastolic BP Systolic 119 mm[Hg] Heart 71 /min Rate/Pulse O2% 96 % Respiratory 17 /min Rate Weight 0 [oz_av] Measured Results Labs Lab Lab Date Result Refere Interp Status Commen Order Detail nces retati t Range on BASIC METABOLIC PANEL (01-25-2013 05:55) Glucose 98 74-106 complet 013 mg/dL ed Bld-mCn 05:55 c BUN 01-25- 20 7-18 complet Bld-mCn 013 mg/dL ed c 05:55 Creat 0.9 0.6-1.0 complet SerPl-m 013 mg/dL ed Cnc 05:55 ESTIMAT 59 50-200 complet ED 013 ML/MIN ed CREATIN 05:55 INE CLEARAN CE GFR 01-25- 60 59- complet (ESTIMA 013 ML/MIN ed RICHELLE) 05:55 Sodium 01-25- 143 136-145 complet SerPl-s 013 mmoL/L ed Cnc 05:55 Potassi 3.6 3.5-5.1 complet um 013 mmoL/L ed SerPl-s 05:55 Cnc Chlorid 108 98-107 complet e 013 mmoL/L ed SerPl-s 05:55 Cnc CO2 04-18-2 29 21.0-32 complet SerPl-s 013 mmoL/L .0 ed Cnc 05:55 Calcium 04-18-2 8.6 8.5-10. complet 013 mg/dL 1 ed SerPl-m 05:55 Cnc CBC with AUTO DIFF (01-25-2013 05:55) WBC # 04-18-2 3.4 4.8-10. complet Bld 013 K/MM3 8 ed Auto 05:55 RBC # 04-18-2 3.89 4.2-5.4 complet Bld 013 M/mm3 ed Auto 05:55 Hgb 04-18-2 12.6 12.2-16 complet Bld-mCn 013 g/dL .2 ed c 05:55 Hct Fr 04-18-2 37.4 % 37.0-47 complet Bld 013 .0 ed 05:55 MCV RBC 04-18-2 96.2 fl 82.2-97 complet 013 .8 ed 05:55 MCH RBC 04-18-2 32.5 pg 27-31.2 complet Qn 013 ed Auto 05:55 MEAN 04-18-2 33.7 31.8-35 complet CORPUSC 013 g/dl .4 ed ULAR 05:55 HGB CONC RDW RBC 04-18-2 13.1 % 11.5-17 complet Auto 013 .5 ed 05:55 Platele 04-18-2 227 142-424 complet t Bld 013 K/mm3 ed Ql 05:55 Manual MEAN 04-18-2 7.5 fl 7.4-10. complet PLATELE 013 4 ed T 05:55 VOLUME Granulo 04-18-2 57.8 % 37.0-80 complet cytes 013 .0 ed Fr Bld 05:55 Auto LYMPH % 04-18-2 31.5 % 10-50.0 complet 013 ed 05:55 Monocyt 04-18-2 7.2 % 1.7-9.3 complet es Fr 013 ed Bld 05:55 Auto Eosinop 04-18-2 2.9 % 0.1-12. complet hil Fr 013 0 ed Bld 05:55 Auto Basophi 04-18-2 0.6 % 0.1-2.0 complet ls Fr 013 ed Bld 05:55 Auto Granulo 04-18-2 2.0 1.8-7.8 complet cytes # 013 K/mm3 ed Bld 05:55 Auto Lymphoc 18-2 1.1 0.7-4.5 complet ytes Fr 013 K/mm3 ed Bld 05:55 Auto Monocyt 0418-2 0.2 0.1-1.0 complet es # 013 K/mm3 ed Bld 05:55 Auto Eosinop 18-2 0.1 0.0-0.4 complet hil # 013 K/mm3 ed Bld 05:55 Auto Basophi 18-2 0.0 0-0.2 complet ls # 013 K/MM3 ed Bld 05:55 Auto COMPREHENSIVE METABOLIC PANEL (01-24-2013 19:20) Glucose 01-24- 103 74-106 complet 013 mg/dL ed Bld-mCn 19:20 c BUN 26 7-18 complet Bld-mCn 013 mg/dL ed c 19:20 Creat 01-24- 1.1 0.6-1.0 complet SerPl-m 013 mg/dL ed Cnc 19:20 ESTIMAT 01-24- 48 50-200 complet ED 013 ML/MIN ed CREATIN 19:20 INE CLEARAN CE GFR 01-24- 48 59- complet (ESTIMA 013 ML/MIN ed RICHELLE) 19:20 Sodium 01-24- 141 136-145 complet SerPl-s 013 mmoL/L ed Cnc 19:20 Potassi 01-24- 3.7 3.5-5.1 complet um 013 mmoL/L ed SerPl-s 19:20 Cnc Chlorid 103 98-107 complet e 013 mmoL/L ed SerPl-s 19:20 Cnc CO2 01-24- 32 21.0-32 complet SerPl-s 013 mmoL/L .0 ed Cnc 19:20 Calcium 01-24-2 8.9 8.5-10. complet 013 mg/dL 1 ed SerPl-m 19:20 Cnc Prot 01-24-2 6.5 6.4-8.2 complet SerPl-m 013 gm/dL ed Cnc 19:20 Albumin 01-24- 3.6 3.4-5.0 complet 013 gm/dL ed SerPl-m 19:20 Cnc Globuli 2.9 1.3-3.2 complet n 013 gm/dL ed Ser-mCn 19:20 c Albumin 17-2 1.2 UNK 1.1-1.8 complet /Glob 013 ed SerPl-m 19:20 Rto Bilirub 17-2 0.2 0.2-1.0 complet 013 mg/dL ed SerPl-m 19:20 Cnc AST 17-2 24 U/L 15-37 complet SerPl-c 013 ed Cnc 19:20 ALT -17-2 33 U/L 30-65 complet SerPl-c 013 ed Cnc 19:20 ALP -17-2 152 U/L 50-136 complet SerPl-c 013 ed Cnc 19:20 CBC with AUTO DIFF (01-24-2013 19:20) WBC # 04-17-2 5.4 4.8-10. complet Bld 013 K/MM3 8 ed Auto 19:20 RBC # -17-2 4.14 4.2-5.4 complet Bld 013 M/mm3 ed Auto 19:20 Hgb -17-2 13.1 12.2-16 complet Bld-mCn 013 g/dL .2 ed c 19:20 Hct Fr 01-24-2 40.0 % 37.0-47 complet Bld 013 .0 ed 19:20 MCV RBC -17-2 96.5 fl 82.2-97 complet 013 .8 ed 19:20 MCH RBC -17-2 31.6 pg 27-31.2 complet Qn 013 ed Auto 19:20 MEAN -17-2 32.8 31.8-35 complet CORPUSC 013 g/dl .4 ed ULAR 19:20 HGB CONC RDW RBC -17-2 13.0 % 11.5-17 complet Auto 013 .5 ed 19:20 Platele -17-2 273 142-424 complet t Bld 013 K/mm3 ed Ql 19:20 Manual MEAN -17-2 7.4 fl 7.4-10. complet PLATELE 013 4 ed T 19:20 VOLUME Granulo -17-2 45.5 % 37.0-80 complet cytes 013 .0 ed Fr Bld 19:20 Auto LYMPH % 04-17-2 42.1 % 10-50.0 complet 013 ed 19:20 Monocyt -17-2 8.2 % 1.7-9.3 complet es Fr 013 ed Bld 19:20 Auto Eosinop 04-17-2 3.5 % 0.1-12. complet hil Fr 013 0 ed Bld 19:20 Auto Basophi 04-17-2 0.7 % 0.1-2.0 complet ls Fr 013 ed Bld 19:20 Auto Granulo 04-17-2 2.4 1.8-7.8 complet cytes # 013 K/mm3 ed Bld 19:20 Auto Lymphoc 04-17-2 2.3 0.7-4.5 complet ytes Fr 013 K/mm3 ed Bld 19:20 Auto Monocyt 04-17-2 0.4 0.1-1.0 complet es # 013 K/mm3 ed Bld 19:20 Auto Eosinop 04-17-2 0.2 0.0-0.4 complet hil # 013 K/mm3 ed Bld 19:20 Auto Basophi 04-17-2 0.0 0-0.2 complet ls # 013 K/MM3 ed Bld 19:20 Auto BASIC METABOLIC PANEL (12-26-2012 07:06) Glucose 93 74-106 complet 013 mg/dL ed Bld-mCn 07:06 c BUN 27 7-18 complet Bld-mCn 013 mg/dL ed c 07:06 Creat 1.0 0.6-1.0 complet SerPl-m 013 mg/dL ed Cnc 07:06 ESTIMAT 53 50-200 complet ED 013 ML/MIN ed CREATIN 07:06 INE CLEARAN CE GFR 53 59- complet (ESTIMA 013 ML/MIN ed RICHELLE) 07:06 Sodium 143 136-145 complet SerPl-s 013 mmoL/L ed Cnc 07:06 Potassi 3.8 3.5-5.1 complet um 013 mmoL/L ed SerPl-s 07:06 Cnc Chlorid 108 98-107 complet e 013 mmoL/L ed SerPl-s 07:06 Cnc CO2 28 21.0-32 complet SerPl-s 013 mmoL/L .0 ed Cnc 07:06 Calcium 8.4 8.5-10. complet 013 mg/dL 1 ed SerPl-m 07:06 Cnc CBC with AUTO DIFF (12-26-2012 07:06) WBC # 03-19-2 4.3 4.8-10. complet Bld 013 K/MM3 8 ed Auto 07:06 RBC # -19-2 3.71 4.2-5.4 complet Bld 013 M/mm3 ed Auto 07:06 Hgb 19-2 12.2 12.2-16 complet Bld-mCn 013 g/dL .2 ed c 07:06 Hct Fr 12-26-2 36.2 % 37.0-47 complet Bld 013 .0 ed 07:06 MCV RBC 12-26-2 97.6 fl 82.2-97 complet 013 .8 ed 07:06 MCH RBC 12-26-2 32.8 pg 27-31.2 complet Qn 013 ed Auto 07:06 MEAN 12-26- 33.6 31.8-35 complet CORPUSC 013 g/dl .4 ed ULAR 07:06 HGB CONC RDW RBC 12-26-2 12.9 % 11.5-17 complet Auto 013 .5 ed 07:06 Platele 12-26-2 212 142-424 complet t Bld 013 K/mm3 ed Ql 07:06 Manual MEAN 2 7.5 fl 7.4-10. complet PLATELE 013 4 ed T 07:06 VOLUME Granulo 12-26-2 51.3 % 37.0-80 complet cytes 013 .0 ed Fr Bld 07:06 Auto LYMPH % 12-26-2 38.1 % 10-50.0 complet 013 ed 07:06 Monocyt 12-26-2 7.1 % 1.7-9.3 complet es Fr 013 ed Bld 07:06 Auto Eosinop 12-26-2 3.1 % 0.1-12. complet hil Fr 013 0 ed Bld 07:06 Auto Basophi 12-26-2 0.3 % 0.1-2.0 complet ls Fr 013 ed Bld 07:06 Auto Granulo -19-2 2.2 1.8-7.8 complet cytes # 013 K/mm3 ed Bld 07:06 Auto Lymphoc 19-2 1.6 0.7-4.5 complet ytes Fr 013 K/mm3 ed Bld 07:06 Auto Monocyt 03-19-2 0.3 0.1-1.0 complet es # 013 K/mm3 ed Bld 07:06 Auto Eosinop 19-2 0.1 0.0-0.4 complet hil # 013 K/mm3 ed Bld 07:06 Auto Basophi 19-2 0.0 0-0.2 complet ls # 013 K/MM3 ed Bld 07:06 Auto BASIC METABOLIC PANEL (12-25-2012 20:50) Glucose 18-2 111 74-106 complet 013 mg/dL ed Bld-mCn 20:50 c BUN 18-2 31 7-18 complet Bld-mCn 013 mg/dL ed c 20:50 Creat 18-2 1.2 0.6-1.0 complet SerPl-m 013 mg/dL ed Cnc 20:50 ESTIMAT -18-2 44 50-200 complet ED 013 ML/MIN ed CREATIN 20:50 INE CLEARAN CE GFR 12-25-2 43 59- complet (ESTIMA 013 ML/MIN ed RICHELLE) 20:50 Sodium 18-2 142 136-145 complet SerPl-s 013 mmoL/L ed Cnc 20:50 Potassi 18-2 3.8 3.5-5.1 complet um 013 mmoL/L ed SerPl-s 20:50 Cnc Chlorid 18-2 103 98-107 complet e 013 mmoL/L ed SerPl-s 20:50 Cnc CO2 18-2 30 21.0-32 complet SerPl-s 013 mmoL/L .0 ed Cnc 20:50 Calcium -18-2 9.3 8.5-10. complet 013 mg/dL 1 ed SerPl-m 20:50 Cnc CBC with AUTO DIFF (12-25-2012 20:50) WBC # 03-18-2 6.6 4.8-10. complet Bld 013 K/MM3 8 ed Auto 20:50 RBC # 03-18-2 4.40 4.2-5.4 complet Bld 013 M/mm3 ed Auto 20:50 Hgb -18-2 14.2 12.2-16 complet Bld-mCn 013 g/dL .2 ed c 20:50 Hct Fr 18-2 43.4 % 37.0-47 complet Bld 013 .0 ed 20:50 MCV RBC 03-18-2 98.5 fl 82.2-97 complet 013 .8 ed 20:50 MCH RBC 03-18-2 32.2 pg 27-31.2 complet Qn 013 ed Auto 20:50 MEAN 03-18-2 32.7 31.8-35 complet CORPUSC 013 g/dl .4 ed ULAR 20:50 HGB CONC RDW RBC 03-18-2 13.2 % 11.5-17 complet Auto 013 .5 ed 20:50 Platele 03-18-2 285 142-424 complet t Bld 013 K/mm3 ed Ql 20:50 Manual MEAN 03-18-2 7.5 fl 7.4-10. complet PLATELE 013 4 ed T 20:50 VOLUME Granulo 03-18-2 52.2 % 37.0-80 complet cytes 013 .0 ed Fr Bld 20:50 Auto LYMPH % 03-18-2 38.5 % 10-50.0 complet 013 ed 20:50 Monocyt 03-18-2 5.5 % 1.7-9.3 complet es Fr 013 ed Bld 20:50 Auto Eosinop 03-18-2 3.1 % 0.1-12. complet hil Fr 013 0 ed Bld 20:50 Auto Basophi 03-18-2 0.7 % 0.1-2.0 complet ls Fr 013 ed Bld 20:50 Auto Granulo 03-18-2 3.4 1.8-7.8 complet cytes # 013 K/mm3 ed Bld 20:50 Auto Lymphoc 03-18-2 2.5 0.7-4.5 complet ytes Fr 013 K/mm3 ed Bld 20:50 Auto Monocyt 03-18-2 0.4 0.1-1.0 complet es # 013 K/mm3 ed Bld 20:50 Auto Eosinop 03-18-2 0.2 0.0-0.4 complet hil # 013 K/mm3 ed Bld 20:50 Auto Basophi 03-18-2 0.1 0-0.2 complet ls # 013 K/MM3 ed Bld 20:50 Auto Encounters Encounter Start End Date Code Location Performer Type Date Inpatient IMP Kee Ch MD ([place]) 3 19:45 3 10:15 [facility] Inpatient IMP Kee [place] ([place]) 3 21:17 3 09:45 [facility]
--- OUTSIDE RECORDS SUMMARY | 2017-07-21 20:12 | External Medical Summary Rpt | CCD ---
Author Author [facility] Organization [facility] Address Unknown Phone Unavailable Purpose Continuity of Care Document - through 2016
--- OUTSIDE RECORDS SUMMARY | 2017-07-21 20:12 | External Medical Summary Rpt | CCD ---
Demographics Preferred Language Turkish Marital Status Unknown Adventist Affiliation Unknown Race Unknown Ethnic Group Unknown Author Author , EBEN TREADWELL Address Unknown Phone Immunization No patient found.
--- OUTSIDE RECORDS SUMMARY | 2017-07-21 20:12 | External Medical Summary Rpt | CCD ---
Demographics Preferred Language [place] Marital Status Unknown Advent Affiliation Unknown Race Unknown Ethnic Group Unknown Author Author , EBEN TREADWELL Address Unknown Phone Immunization No patient found.
--- OUTSIDE RECORDS SUMMARY | 2017-07-21 20:12 | External Medical Summary Rpt | CCD ---
Author Author , EBEN TREADWELL Address Unknown Phone [email or web address] [email or web address] Care Inside Tester Name Role Phone Brad Giles MD, Unavailable Unavailable Brad Giles MD Purpose Continuity of Care Document - 12-25-2012 through 2016 Problems Code Diagnosis DOS Provider Status 780.2 [address] [facility] Allergies, Adverse Reactions, Alerts Type Drug Allergy [...] Ch MD ([place]) 3 19:45 3 10:15 [facility] Inpatient IMP Kee Noyola ([place]) 3 21:17 3 09:45 [facility]
== END 2017-07-14 16:26 | disposition short-term general hospital (02) ==
LOC: ER 15:21
PROVIDERS: Emergency Medicine
DX: I62.9 Nontraumatic intracranial hemorrhage, unspecified (principal); I61.5 Nontraumatic intracerebral hemorrhage, intraventricular; R29.810 Facial weakness; R47.9 Unspecified speech disturbances; I10 Essential (primary) hypertension; Z88.0 Allergy status to penicillin; Z79.82 Long term (current) use of aspirin; Z79.899 Other long term (current) drug therapy
CPT/HCPCS: J2405